=== PATIENT | male | born 1955 | race Caucasian/White ===

== ENCOUNTER 2017-02-22 16:36 | Emergency (ER) | payer MEDICARE, MEDICAID ==
[2017-02-22] MEDS ORDERED: Lidocaine 2% PF * 5 ML VIAL INJ ONE (17:08)
--- NOTE | 2017-02-22 17:08 | UC ---
General HPI - HPI Summary HPI Summary: complaint of sweeling and pain on right leg 4-5 days ago he found a small pimple or spider bite yesterday started to get bigger and today it is getting bigger starting to hurt his knee when walking denies fever and chills took some ibuprofen without too much relief today - History of Current Complaint Chief Complaint: UCSkin Stated Complaint: SKIN ISSUE Time Seen by Provider: 02/22/17 16:59 Hx Obtained From: Patient - Allergy/Home Medications Allergies/Adverse Reactions: Allergies Allergy/AdvReac Type Severity Reaction Status Date / Time No Known Allergies Allergy Verified 05/22/12 19:01 Home Medications: Home Medications Ibuprofen [Ibuprofen 200 MG] 400 mg PO PRN 02/22/17 [History] PMH/Surg Hx/FS Hx/Imm Hx Previously Healthy: Yes - Surgical History Surgical History: Yes Surgery Procedure, Year, and Place: hernia repair - Family History Known Family History: Negative: Cardiac Disease, Hypertension, Diabetes - Social History Occupation: Employed Full-time Lives: With Family Alcohol Use: None Substance Use Type: None Smoking Status (MU): Never Smoked Tobacco Have You Smoked in the Last Year: No Review of Systems Constitutional: Negative Skin: Rash Eyes: Negative ENT: Negative Respiratory: Negative Cardiovascular: Negative Gastrointestinal: Negative Genitourinary: Negative Motor: Negative Neurovascular: Negative Musculoskeletal: Negative Neurological: Negative Psychological: Negative All Other Systems Reviewed And Are Negative: Yes Physical Exam Triage Information Reviewed: Yes Appearance: No Pain Distress, Well-Nourished Vital Signs: Initial Vital Signs Temp 99.9 F 02/22/17 16:53 Pulse 99 02/22/17 16:53 Resp 18 02/22/17 16:53 BP 127/68 02/22/17 16:53 Pulse Ox 97 02/22/17 16:53 Vital Signs Reviewed: Yes Eyes: Positive: Conjunctiva Clear ENT: Positive: Pharynx normal, TMs normal Neck: Positive: No Lymphadenopathy Respiratory: Positive: Lungs clear, Normal breath sounds, No respiratory distress, No accessory muscle use Cardiovascular: Positive: RRR, No Murmur, Pulses Normal, Brisk Capillary Refill Abdomen Description: Positive: Nontender, Soft Bowel Sounds: Positive: Present Musculoskeletal Exam: Normal Neurological Exam: Normal Psychological Exam: Normal Skin: Positive: Other - right thigh 18x14 cm area of erythema with large induration beneath Procedures - Incision and Drainage Site: right thigh Anesthesia: Local, Lidocaine Instrument(s): Scalpel Packing: Other - sterile pressure dressing Course/Dx - Differential Dx - Multi-Symptom Differential Diagnoses: Other - cellulitis, abscess Provider Diagnoses: abscess -cellulitis right leg Discharge - Discharge Plan Condition: Stable Disposition: HOME Prescriptions: Sulfamethox/Trimethoprim DS* [Bactrim DS 800/160 TAB*] 1 tab PO BID #14 tab Patient Education Materials: Abscess Follow-up (ED) Referrals: No Primary Care Phys,NOPCP [Medical Doctor] - [facility] [Outside] Additional Instructions: Please start antibiotic as directed Increase fluids and rest Take acetaminophen or ibuprofen for fever or pain change bandage daily- if area of redness increases, pain increases or you develop a fever please seem medical care Please review your discharge instructions. If your symptoms do not improve please call your primary care provider or return to urgent care.
[2017-02-22 17:15] VITALS: BP 127/68
--- NOTE | 2017-02-24 07:23 | UC ---
Progress - Progress Note Progress Note: 0721am 02/24/17: wound culture is MRSA and S aureus neg. Pt on Bactrim. NKDA. culture ID and sensitivities pending. No change in therapy indicated at this time. Crystal Perez MD.
--- NOTE | 2017-02-25 16:23 | UC ---
Progress - Progress Note Progress Note: 0721am 02/24/17: wound culture is MRSA and S aureus neg. Pt on Bactrim. NKDA. culture ID and sensitivities pending. No change in therapy indicated at this time. Crystal Perez MD. 02/25/17 WOUND CX NORMAL MARCI.
== END 2017-02-22 17:44 | disposition home or self-care (01) ==
LOC: UCEAST 16:36
DX: L02.415 Cutaneous abscess of right lower limb (principal); B95.7 Other staphylococcus as the cause of diseases classified elsewhere; L03.115 Cellulitis of right lower limb
CPT/HCPCS: 10060; 87070; 87077; 87205; 87640; 87641; 99212; G0463

== ENCOUNTER 2017-02-25 19:47 | Emergency (ER) | payer MEDICARE, MEDICAID ==
[2017-02-25 20:26] VITALS: BP 120/70
--- NOTE | 2017-02-25 20:26 | UC ---
HPI Wound/Suture Re-check - HPI Summary HPI Summary: 61 YEAR OLD MALE PRESENTS WITH COMPLAINS OF WORSENING RIGHT MEDIAL THIGH INSECT BITE. PATIENT WAS SEEN FOR AN I/D AT [facility]. - History Of Current Complaint Stated Complaint: WOUND RECHECK Time Seen by Provider: 02/25/17 20:24 - Allergies/Home Medications Allergies/Adverse Reactions: Allergies Allergy/AdvReac Type Severity Reaction Status Date / Time No Known Allergies Allergy Verified 02/25/17 20:27 PMH/Surg Hx/FS Hx/Imm Hx Previously Healthy: Yes - Surgical History Surgical History: None Surgery Procedure, Year, and Place: hernia repair - Family History Known Family History: Positive: Unknown Negative: Cardiac Disease, Hypertension, Diabetes - Social History Alcohol Use: None Substance Use Type: None Smoking Status (MU): Never Smoked Tobacco Have You Smoked in the Last Year: No Review of Systems Constitutional: Negative Skin: Other - RIGHT MEDIAL THIGH CELLULITIS Eyes: Negative ENT: Negative Respiratory: Negative Cardiovascular: Negative Gastrointestinal: Negative Genitourinary: Negative Motor: Negative Neurovascular: Negative Musculoskeletal: Negative Neurological: Negative Psychological: Negative All Other Systems Reviewed And Are Negative: Yes Physical Exam Triage Information Reviewed: Yes Eye Exam: Normal ENT Exam: Normal Dental Exam: Normal Neck exam: Normal Neck: Positive: 1 Respiratory Exam: Normal Cardiovascular Exam: Normal Abdominal Exam: Normal Musculoskeletal Exam: Normal Neurological Exam: Normal Psychological Exam: Normal Skin: Positive: Other - RIGHT THIGH CELLULITIS Course/Dx - Differential Dx - Laceration/Wound Provider Diagnoses: CELLULITIS Discharge - Discharge Plan Condition: Stable Disposition: HOME Patient Education Materials: Cellulitis (ED) Referrals: Lance Campbell MD [Primary Care Provider] - Additional Instructions: PLEASE GO TO ER FOR WORSENING CELLULITIS.
== END 2017-02-25 20:56 | disposition home or self-care (01) ==
LOC: UCEAST 19:47
DX: S70.361A Insect bite (nonvenomous), right thigh, initial encounter (principal); L03.115 Cellulitis of right lower limb
CPT/HCPCS: 99212; G0463

== ENCOUNTER 2017-02-25 21:19 | Emergency (ER) | payer MEDICARE, MEDICAID ==
[2017-02-25 22:49] LABS: Add Diff/Slide Review? Slide Review Added; Comments Flag Yes; Hematocrit 49 % (42-52); Hemoglobin 16.5 g/dl (14.0-18.0); Mean Corpuscular HGB Conc 33 g/dl (31-36); Mean Corpuscular Hemoglobin 30 pg (27-31); Mean Corpuscular Volume 91 fL (80-94); Mean Platelet Volume 8 um3 (7.4-10.4); Red Blood Count 5.42 10^6/ul (4.0-5.4); Red Cell Distribution Width 14 % (10.5-15); White Blood Count 7.7 10^3/ul (3.5-10.8)
[2017-02-25 23:03] LABS: Albumin 4.2 g/dL (3.2-5.2); C Reactive Protein 65.23 mg/L (< 5.00); Calcium 8.9 mg/dL (8.6-10.3); EGFR African American 90.1 (>60); Globulin 2.9 g/dL (2-4); Potassium 4.3 mmol/L (3.5-5.0); Total Bilirubin 0.6 mg/dL (0.2-1.0); Total Protein 7.1 g/dL (6.4-8.9)
[2017-02-26] MEDS ORDERED: Clindamycin 600 MG IVPREMIX(* 600 MG/50 ML SDV IV ONE (00:10)
--- NOTE | 2017-02-26 00:41 | ED ---
Divya Marquez Edward, scribed for Inocencio Peraza MD on 02/26/17 at 0010 . Skin Complaint - HPI Summary HPI Summary: 61 y/o male presents to ED c/o R leg abscess @ R inner thigh. It started as three little bumps at 08:00 on 02/22/17. The pt popped the bumps several days later and then the pt developed erythema and pain at the site. The region of erythema has gotten larger since it started. The pain is aggravated with movement of the leg and rated 4/10 in severity at triage. Pt was at [facility] three days ago where he had his abscess drained. Pt was given abx. - History of Current Complaint Chief Complaint: EDRashSkinAbscess Time Seen by Provider: 02/26/17 00:05 Stated Complaint: RT LEG INFECTION Hx Obtained From: Patient Onset/Duration: Started Weeks Ago - 1 week ago, Still Present Timing: Constant Current Severity: Severe Pain Intensity: 4 Pain Scale Used: 0-10 Numeric Skin Location: Leg - R inner thigh Character: Pain, Redness Aggravating Symptom(s): Other: - Movement Associated Signs & Symptoms: Rash, Tenderness - Allergy/Home Medications Allergies/Adverse Reactions: Allergies Allergy/AdvReac Type Severity Reaction Status Date / Time No Known Allergies Allergy Verified 02/25/17 20:27 PMH/Surg Hx/FS Hx/Imm Hx Previously Healthy: No Endocrine/Hematology History: Denies: Hx Diabetes, Hx Thyroid Disease Cardiovascular History: Denies: Hx Congestive Heart Failure, Hx Deep Vein Thrombosis, Hx Hypertension , Hx Myocardial Infarction, Hx Pacemaker/ICD Respiratory History: Denies: Hx Asthma, Hx Chronic Obstructive Pulmonary Disease (COPD) GI History: Denies: Hx Ulcer - Surgical History Surgery Procedure, Year, and Place: hernia repair Infectious Disease History: No Infectious Disease History: Denies: Hx Clostridium Difficile, Hx Hepatitis, Hx Human Immunodeficiency Virus (HIV), Hx of Known/Suspected MRSA, Hx Shingles, Hx Tuberculosis, Hx Known/ Suspected VRE, Hx Known/Suspected VRSA, History Other Infectious Disease, Traveled Outside the [place] in Last 30 Days - Family History Known Family History: Negative: Cardiac Disease, Hypertension, Diabetes - Social History Lives: With Family Alcohol Use: None Hx Substance Use: No Substance Use Type: Reports: None Hx Tobacco Use: No Smoking Status (MU): Never Smoked Tobacco Have You Smoked in the Last Year: No Review of Systems Constitutional: Negative Eyes: Negative ENT: Negative Cardiovascular: Negative Respiratory: Negative Gastrointestinal: Negative Genitourinary: Negative Musculoskeletal: Negative Skin: Other - Abscess @ R inner thigh - large region of erythema and pain aggravated with movement Neurological: Negative Psychological: Normal All Other Systems Reviewed And Are Negative: Yes Physical Exam Triage Information Reviewed: Yes Vital Signs On Initial Exam: Initial Vitals Temp Pulse Resp BP Pulse Ox 97.2 F 102 16 127/88 96 02/25/17 21:26 02/25/17 21:26 02/25/17 21:26 02/25/17 21:26 02/25/17 21:26 Vital Signs Reviewed: Yes Appearance: Positive: Well-Appearing, No Pain Distress Skin: Positive: Warm, Other - rt thigh with area of erythema, no fluctuance, mild induration Head/Face: Positive: Normal Head/Face Inspection Eyes: Positive: EFRAÍN ENT: Positive: Hearing grossly normal Neck: Positive: Supple Respiratory/Lung Sounds: Positive: Clear to Auscultation, Breath Sounds Present Cardiovascular: Positive: RRR Abdomen Description: Positive: Nontender, Soft Bowel Sounds: Positive: Present Diagnostics - Vital Signs Vital Signs Temp Pulse Resp BP Pulse Ox 02/25/17 23:00 100.0 F 98 20 113/80 99 02/25/17 21:29 97.1 F 107 16 127/88 100 02/25/17 21:26 97.2 F 102 16 127/88 96 - Laboratory Lab Results: Lab Results 02/25/17 02/25/17 02/25/17 Range/Units 22:38 22:38 22:38 WBC 7.7 (3.5-10.8) 10^3/ul RBC 5.42 H (4.0-5.4) 10^6/ul Hgb 16.5 (14.0-18.0) g/dl Hct 49 (42-52) % MCV 91 (80-94) fL MCH 30 (27-31) pg MCHC 33 (31-36) g/dl RDW 14 (10.5-15) % Plt Count 235 (150-450) 10^3/ul MPV 8 (7.4-10.4) um3 Neut % (Auto) 77.1 (38-83) % Lymph % (Auto) 8.4 L (25-47) % [place] % (Auto) 9.2 H (1-9) % Eos % (Auto) 2.6 (0-6) % Baso % (Auto) 2.7 H (0-2) % Absolute Neuts (auto) 5.9 (1.5-7.7) 10^3/ul Absolute Lymphs (auto) 0.6 L (1.0-4.8) 10^3/ul Absolute Monos (auto) 0.7 (0-0.8) 10^3/ul Absolute Eos (auto) 0.2 (0-0.6) 10^3/ul Absolute Basos (auto) 0.2 (0-0.2) 10^3/ul Absolute Nucleated RBC 0.01 10^3/ul Nucleated RBC % 0.1 Sodium 134 (133-145) mmol/L Potassium 4.3 (3.5-5.0) mmol/L Chloride 103 (101-111) mmol/L Carbon Dioxide 25 (22-32) mmol/L Anion Gap 6 (2-11) mmol/L BUN 15 (6-24) mg/dL Creatinine 1.07 (0.67-1.17) mg/dL Est GFR ( Amer) 90.1 (>60) Est GFR (Non-Af Amer) 70.0 (>60) BUN/Creatinine Ratio 14.0 (8-20) Glucose 206 H (70-100) mg/dL Lactic Acid 1.5 (0.5-2.0) mmol/L Calcium 8.9 (8.6-10.3) mg/dL Total Bilirubin 0.60 (0.2-1.0) mg/dL AST 16 (13-39) U/L ALT 7 (7-52) U/L Alkaline Phosphatase 68 (34-104) U/L C-Reactive Protein 65.23 H (< 5.00) mg/L Total Protein 7.1 (6.4-8.9) g/dL Albumin 4.2 (3.2-5.2) g/dL Globulin 2.9 (2-4) g/dL Albumin/Globulin Ratio 1.4 (1-3) Result Diagrams: 02/25/17 22:38 02/25/17 22:38 Lab Statement: Any lab studies that have been ordered have been reviewed, and results considered in the medical decision making process. Re-Evaluation - Re-Evaluation First Eval Comment: results d/w pt, will change to clindamycin Course/Dx - Course Assessment/Plan: 61 y/o male presents to ED c/o R leg abscess @ R inner thigh. It started as three little bumps at 08:00 on 02/22/17. The pt popped the bumps several days later and then the pt developed erythema and pain at the site. The region of erythema has gotten larger since it started. The pain is aggravated with movement of the leg and rated 4/10 in severity at triage. Pt was at [facility] three days ago where he had his abscess drained. Pt was given abx. Pt will be d/ c home. - Diagnoses Provider Diagnoses: Cellulitis Discharge - Discharge Plan Condition: Stable Disposition: HOME Prescriptions: Clindamycin HCl [Clindamycin 150 MG CAP*] 300 mg PO QID #60 cap Patient Education Materials: Cellulitis (ED) Referrals: Lance Campbell MD [Primary Care Provider] - 3 Days (Please f/u in 2-3 days) Additional Instructions: STOP BACTRIM The documentation as recorded by the Divya leung Edward accurately reflects the service I personally performed and the decisions made by , Inocencio Peraza MD.
[2017-02-26 03:04] VITALS: BP 115/75
== END 2017-02-26 02:25 | disposition home or self-care (01) ==
LOC: ED 21:19
DX: L03.90 Cellulitis, unspecified (principal); L02.415 Cutaneous abscess of right lower limb
CPT/HCPCS: 36415; 80053; 83605; 85025; 86140; 87040; 96374; 99283